=== PATIENT | female | born 1940 | race Caucasian/White ===

== ENCOUNTER → 2016-10-02 | Outpatient (CLI) | payer OTHER, MEDICARE | LOC: BMCIMAGING 11:04 | PROVIDERS: ATTEND Family Medicine | DX: J44.9 Chronic obstructive pulmonary disease, unspecified (principal); R91.1 Solitary pulmonary nodule ==

== ENCOUNTER 2017-08-03 03:59 | Emergency (ER) | payer OTHER, MEDICARE ==
[2017-08-03 04:10] VITALS: TEMP 97.5
[2017-08-03 04:41] LABS: PLATELET COUNT 216 10^3/uL (150-400)
[2017-08-03] MEDS ORDERED: NS 1,000 ML IV ONE (04:53)
[2017-08-03] MEDS ORDERED: ONDANSETRON 4 MG/2 ML VIAL IVP ONE (04:53)
--- NOTE | 2017-08-03 04:57 | EDPHY ---
H & P Stated Complaint: LEFT FLANK PAIN SINCE 1 A.M. WITH NAUSEA Source: Patient Exam Limitations: No limitations - Personal History Current Tetanus/Diphtheria Vaccine: Yes Current Tetanus Diphtheria and Acellular Pertussis (TDAP): Yes - Medical/Surgical History Hx Asthma: Yes Hx Chronic Respiratory Disease: No Hx Diabetes: No Hx Cardiac Disease: No Hx Renal Disease: No Hx Cirrhosis: No Hx Alcoholism: No Hx HIV/AIDS: No Hx Splenectomy or Spleen Trauma: No Other PMH: RAYNADS, BLADDER PROBLEMS - Social History Smoking Status: Former smoker Time Seen by Provider: 08/03/17 04:17 HPI/ROS: HPI The patient presents with left-sided flank pain that awoke her from sleep at 1: 00 a.m.. It was dull in nature, severe, radiated forwards to her abdomen and cause some abdominal cramping. It was associated with nausea without vomiting. She went to the bathroom and had 3 formed bowel movements and urinate. She denies any dysuria or hematuria. She has no prior history of similar. Her symptoms began to resolve and now she is feeling much better, only complaining of nausea. REVIEW OF SYSTEMS Constitutional: No fever, no chills. Eyes: No discharge. ENT: No sore throat. Cardiovascular: No chest pain, no palpitations. Respiratory: No cough, no shortness of breath. Gastrointestinal: No abdominal pain, no vomiting. Genitourinary: No hematuria. Musculoskeletal: No back pain. Skin: No rashes. Neurological: No headache. PMHx: History of tibial plateau fracture, history of Raynaud's Soc Hx: Lives independently PHYSICAL General Appearance: Alert, no distress Eyes: Pupils equal and round no pallor or injection ENT, Mouth: Mucous membranes moist Respiratory: There are no retractions, lungs are clear to auscultation Cardiovascular: Regular rate and rhythm Gastrointestinal: Abdomen is soft and non-tender, no masses, bowel sounds normal Neurological: A&O, moves all extremities Skin: Warm and dry, no rashes Musculoskeletal: Neck is supple non tender Extremities: symmetrical, full range of motion Psychiatric: Patient is oriented X 3, there is no agitation (Riguzzi,Celina) Constitutional: Initial Vital Signs Temperature (C) 36.4 C 08/03/17 04:01 Heart Rate 77 08/03/17 04:01 Respiratory Rate 16 08/03/17 04:01 Blood Pressure 146/71 H 08/03/17 04:01 O2 Sat (%) 93 08/03/17 04:01 O2 Delivery Mode Nasal Cannula O2 (L/minute) 2 Allergies/Adverse Reactions: diazepam [From Valium] Allergy (Unverified 08/03/17 04:06) Home Medications: Medication Instructions Recorded Cephalexin [Keflex (*)] 500 mg PO Q6 7 Days cap 08/03/17 Fluticasone/Vilanterol [Breo 1 each IH 08/03/17 Ellipta 100-25 Mcg INH] Oxybutynin Chloride [Ditropan 5mg 5 mg PO 08/03/17 (RX)] Ranitidine HCl 150 mg PO 08/03/17 Medical Decision Making - Diagnostics Imaging: Discussed imaging studies w/ inbound call center representative Radiologist - Diagnostics Imaging Results: CT abdomen pelvis without contrast demonstrates stone in bladder and stones in kidneys without any hydronephrosis, there is constipation, discussed with Dr. Aparicio of Radiology. (Celina Chen) ED Course/Re-evaluation: I took over care of this patient at 7:00 a.m.. This patient was evaluated for possible kidney stone. Unremarkable noncontrast CT scan of the abdomen and pelvis. Please see dictation by Dr. Chen for further details. We are waiting on a urinalysis prior to disposition. 8:30 a.m., results of urinalysis reviewed. She does have red cells and white cells. Considering her presentation I will start her on Keflex in the emergency department. Urine culture has been ordered. She was re-evaluated at this time. Results of her urinalysis and plan for antibiotics discussed with her. She feels comfortable going home at this time. Follow-up and return to emergency department precautions reviewed. All of her questions were answered. She was discharged in good condition. (Aaliyah Jvaier) Differential Diagnosis: This is a 77-year-old female generally healthy who presents from home with several hours of left-sided flank pain, now mostly improved. Is on exam, she is well-appearing with normal vital signs, she does not have any flank or CVA tenderness. Differential diagnosis includes ureterolithiasis, pyelonephritis, muscle spasm, diverticulitis, AAA. In the emergency department, patient was given IV fluids and Zofran for her nausea. Labs were checked and were unremarkable. CT scan demonstrates constipation, stone in urinary bladder without any hydronephrosis. The patient' s pain could be related to constipation, I doubt ureterolithiasis given no hydronephrosis. However cannot completely rule out. I discussed these findings with the patient. She is awaiting urinalysis. If she has signs of infection, she will require antibiotics. The case is signed out to the oncoming provider Dr. Javier pending the patient's UA. (Celina Chen) - Data Points Laboratory Results: Laboratory Results 08/03/17 04:27 08/03/17 04:27 08/03/17 08/03/17 08/03/17 07:50 04:27 04:27 WBC 11.50 10^3/uL H 10^3/uL (3.80-9.50) RBC 4.63 10^6/uL 10^6/uL (4.18-5.33) Hgb 15.4 g/dL g/dL (12.6-16.3) Hct 44.6 % % (38.0-47.0) MCV 96.3 fL fL (81.5-99.8) MCH 33.3 pg pg (27.9-34.1) MCHC 34.5 g/dL g/dL (32.4-36.7) RDW 13.8 % % (11.5-15.2) Plt Count 216 10^3/uL 10^3/uL (150-400) MPV 9.5 fL fL (8.7-11.7) Neut % (Auto) 85.8 % H % (39.3-74.2) Lymph % (Auto) 7.0 % L % (15.0-45.0) [place] % (Auto) 4.6 % % (4.5-13.0) Eos % (Auto) 1.7 % % (0.6-7.6) Baso % (Auto) 0.5 % % (0.3-1.7) Nucleat RBC Rel Count 0.0 % % (0.0-0.2) Absolute Neuts (auto) 9.87 10^3/uL H 10^3/uL (1.70-6.50) Absolute Lymphs (auto) 0.80 10^3/uL L 10^3/uL (1.00-3.00) Absolute Monos (auto) 0.53 10^3/uL 10^3/uL (0.30-0.80) Absolute Eos (auto) 0.19 10^3/uL 10^3/uL (0.03-0.40) Absolute Basos (auto) 0.06 10^3/uL 10^3/uL (0.02-0.10) Absolute Nucleated RBC 0.00 10^3/uL 10^3/uL (0-0.01) Immature Gran % 0.4 % % (0.0-1.1) Immature Gran # 0.05 10^3/uL 10^3/uL (0.00-0.10) Sodium 147 mEq/L H mEq/L (134-144) Potassium 4.4 mEq/L mEq/L (3.5-5.2) Chloride 112 mEq/L H mEq/L (97-110) Carbon Dioxide 20 mEq/l L mEq/l (22-31) Anion Gap 15 mEq/L mEq/L (8-16) BUN 23 mg/dL mg/dL (7-23) Creatinine 0.9 mg/dL mg/dL (0.6-1.0) Estimated GFR > 60 Glucose 94 mg/dL mg/dL (70-100) Calcium 9.6 mg/dL mg/dL (8.5-10.4) Total Bilirubin 0.4 mg/dL mg/dL (0.1-1.4) AST 30 IU/L IU/L (14-46) ALT 38 IU/L IU/L (9-52) Alkaline Phosphatase 135 IU/L H IU/L (38-126) Total Protein 7.0 g/dL g/dL (6.3-8.2) Albumin 4.3 g/dL g/dL (3.5-5.0) Urine Color YELLOW Urine Appearance MODERATELY TURBID Urine pH 5.0 (5.0-7.5) Ur Specific [place] 1.020 (1.002-1.030) Urine Protein NEGATIVE (NEGATIVE) Urine Ketones TRACE H (NEGATIVE) Urine Blood 1+ H (NEGATIVE) Urine Nitrate NEGATIVE (NEGATIVE) Urine Bilirubin NEGATIVE (NEGATIVE) Urine Urobilinogen NEGATIVE EU EU (0.2-1.0) Ur Leukocyte Esterase NEGATIVE (NEGATIVE) Urine RBC 50-182 /hpf H /hpf (0-3) Urine WBC 3-5 /hpf H /hpf (0-3) Ur Epithelial Cells TRACE /lpf /lpf (NONE-1+) Hyaline Casts 1-5 /lpf /lpf (0-1) Urine Mucus 2+ /lpf H /lpf (NONE-1+) Urine Glucose NEGATIVE (NEGATIVE) Medications Given: Discontinued Medications Sodium Chloride (Ns) 1,000 mls @ 0 mls/hr IV EDNOW ONE; Wide Open PRN Reason: Protocol Stop: 08/03/17 04:54 Last Admin: 08/03/17 04:59 Dose: 1,000 mls Ondansetron HCl (Zofran) 4 mg IVP EDNOW ONE Stop: 08/03/17 04:54 Last Admin: 08/03/17 04:59 Dose: 4 mg Departure - Departure Disposition: Home, Routine, Self-Care Clinical Impression: Calculus of left kidney, Flank pain, Constipation, Urinary tract infection Condition: Good Instructions: Kidney Stones (ED), Urinary Tract Infection in Women (DC) Additional Instructions: If your pain returns, I recommend you take Naprosyn. Take antibiotics through entire course of treatment. Follow-up your primary care physician for re-evaluation on Sunday. Return to the emergency department for worsening pain, fever, vomiting or other serious concerns. Referrals: Cindy Angel MD [Primary Care Provider] - As per Instructions Jeffry Merchant MD [Medical Doctor] - As per Instructions Prescriptions: Cephalexin [Keflex (*)] 500 mg PO Q6 7 Days cap
[2017-08-03] MEDS ORDERED: CEPHALEXIN 500 MG CAP PO ONE (08:31)
[2017-08-03 08:47] VITALS: BP 146/96; PULSE 79; RESP 16; O2SAT 98
== END 2017-08-03 08:45 | disposition home or self-care (01) ==
DX: N20.0 Calculus of kidney (principal); K59.00 Constipation, unspecified; N39.0 Urinary tract infection, site not specified; B96.89 Other specified bacterial agents as the cause of diseases classified elsewhere; J45.909 Unspecified asthma, uncomplicated; E86.9 Volume depletion, unspecified; Z87.891 Personal history of nicotine dependence
CPT/HCPCS: 74176; 96361; 96374; 99285; J2405

== ENCOUNTER → 2017-08-15 | Outpatient (CLI) | payer OTHER, MEDICARE | LOC: BMCIMAGING 10:15 | PROVIDERS: ATTEND Internal Medicine | DX: R06.09 Other forms of dyspnea (principal) ==

== ENCOUNTER → 2017-10-27 | Outpatient (CLI) | payer OTHER, MEDICARE | LOC: FIMAGING 10:17 | PROVIDERS: ATTEND Physician Assistant Medical | DX: G31.9 Degenerative disease of nervous system, unspecified (principal); I67.82 Cerebral ischemia ==

== ENCOUNTER → 2018-01-31 | Outpatient (CLI) | payer OTHER, MEDICARE | LOC: BMCIMAGING 09:09 | PROVIDERS: ATTEND Emergency Medicine | DX: R05 Cough (principal) ==